=== PATIENT | female | born 1985 | race Two or more races ===

== ENCOUNTER 2016-08-02 17:11 | Observation (INO) | payer OTHER ==
--- NOTE | 2016-08-02 20:17 | ER Document Report ---
ED Medical Screen (RME) - General Chief Complaint: Abdominal Pain Stated Complaint: ABDOMINAL PAIN Time Seen by Provider: 08/02/16 20:14 Mode of Arrival: Ambulatory Information source: Patient Notes: Is a 30-year-old previously healthy female who presents for abdominal pain. She states that at about 9:00 this morning she had severe lower abdominal pain. She felt like she may have to have a bowel movement but she was unable to. The pain eventually subsided. However she had another episode at about 1600 today. Reports severe crampy lower abdominal pain. No dysuria. She has had nausea but no vomiting today. No vaginal bleeding or discharge. Of note she does have an IUD and she is concerned about possible ectopic . Last po : crackers in the waiting room here. I have greeted and performed a rapid initial assessment of this patient. A comprehensive ED assessment and evaluation of the patient, analysis of test results and completion of the medical decision making process will be conducted by additional ED providers. TRAVEL OUTSIDE OF THE [place] IN LAST 30 DAYS: No - Related Data Allergies/Adverse Reactions: No Known Drug Allergies Allergy (Verified 08/02/16 20:07) Past Medical History Renal/ Medical History: Denies: Hx Peritoneal Dialysis Physical Exam - Vital signs Vitals: Temp Pulse Resp BP Pulse Ox 98.4 F 81 20 109/60 100 08/02/16 18:34 08/02/16 18:34 08/02/16 18:34 08/02/16 18:34 08/02/16 18:34 - General General appearance: Appears well, Alert In distress: None - Respiratory Respiratory status: No respiratory distress Breath sounds: Normal. No: Rales, Rhonchi, Wheezing - Cardiovascular Rhythm: Regular Heart sounds: Normal auscultation, S1 appreciated, S2 appreciated Murmur: No Course - Vital Signs Vital signs: Temp Pulse Resp BP Pulse Ox 98.4 F 81 20 109/60 100 08/02/16 18:34 08/02/16 18:34 08/02/16 18:34 08/02/16 18:34 08/02/16 18:34
--- NOTE | 2016-08-02 20:24 | ER Document Report ---
ED GI/ - General Chief Complaint: Abdominal Pain Stated Complaint: ABDOMINAL PAIN Time Seen by Provider: 08/02/16 20:14 Mode of Arrival: Ambulatory Information source: Patient Notes: 30 yo non smoker female c/o low abdominal pain since 9 this morning has felt like she had a bowel movement and progressively got worse throughout the day. felt better with heat, at 1600 returned in same location, bm at that time did not help. No vaginal d/c or odor. No dysuria, frequency or urgency. Non hormone IUD in place for 2 years, dr. sunny seymour placed it . No abd. surgeries. , spontaneous miscarriege. Hot flash when the pain was worse. Similar pain 1 month ago, resolved on its own. No hx crohns, colitis, diverticulitis. Nausea without vomiting. TRAVEL OUTSIDE OF THE [place] IN LAST 30 DAYS: No - Related Data Allergies/Adverse Reactions: No Known Drug Allergies Allergy (Verified 08/02/16 20:07) Home Medications: Current Home Medications No Home Medications 08/03/16 [History] Past Medical History - General Information source: Patient - Social History Smoking Status: Current Every Day Smoker Frequency of alcohol use: None Drug Abuse: None Lives with: Family Family History: Reviewed & Not Pertinent - Medical History Medical History: Negative Renal/ Medical History: Denies: Hx Peritoneal Dialysis Surgical Hx: Negative Review of Systems - Review of Systems Constitutional: No symptoms reported EENT: No symptoms reported Cardiovascular: No symptoms reported Respiratory: No symptoms reported Gastrointestinal: See HPI Genitourinary: No symptoms reported Female Genitourinary: No symptoms reported Musculoskeletal: No symptoms reported Skin: No symptoms reported Hematologic/Lymphatic: No symptoms reported Neurological/Psychological: No symptoms reported Physical Exam - Vital signs Vitals: Temp Pulse Resp BP Pulse Ox 98.4 F 81 20 109/60 100 08/02/16 18:34 08/02/16 18:34 08/02/16 18:34 08/02/16 18:34 08/02/16 18:34 Interpretation: Normal - General General appearance: Alert In distress: None Notes: mild pale - HEENT Head: Normocephalic, Atraumatic Eyes: Normal Pupils: PERRL Pharynx: Normal Neck: Supple. No: Lymphadenopathy - Respiratory Respiratory status: No respiratory distress Chest status: Nontender Breath sounds: Normal Chest palpation: Normal - Cardiovascular Rhythm: Regular Heart sounds: Normal auscultation Murmur: No - Abdominal Inspection: Normal Distension: No distension Bowel sounds: Normal Tenderness: Tender, McBurney's point Organomegaly: No organomegaly - Genitourinary External exam: Normal Speculum exam: Normal Vaginal bleeding: None Bimanuel exam: No: Cervical motion tender, Adnexal tenderness - Back Back: Normal, Nontender. No: CVA tenderness - Extremities General upper extremity: Normal inspection, Nontender, Normal color, Normal ROM , Normal temperature General lower extremity: Normal inspection, Nontender, Normal color, Normal ROM , Normal temperature, Normal weight bearing. No: Marely's sign - Neurological Neuro grossly intact: Yes Cognition: Normal Orientation: AAOx4 Wilver Coma Scale Eye Opening: Spontaneous Wilver Coma Scale Verbal: Oriented Wilver Coma Scale Motor: Obeys Commands Wilver Coma Scale Total: 15 Speech: Normal Motor strength normal: LUE, RUE, LLE, RLE Sensory: Normal - Psychological Associated symptoms: Normal affect, Normal mood - Skin Skin Temperature: Warm Skin Moisture: Dry Skin Color: Normal Course - Re-evaluation Re-evalutation: 08/02/16 21:53 IUD string is normal length, mucoid, white discharge, no CMT, still operator gin over mcBurny's CT ordered. Pt is NPO 08/03/16 01:[address] mcarthur, get the US, give invanz 1 gm IV,, based on CT report, encapsulation of 2.6 cm fluid collection in the right pelvis. The appendix is normal. With the patient. 08/03/16 03:34 With the radiologist who believes that between the ultrasound and the CT that this is a [employer] MA[employer]GER problem not derived from the intestines. He is not sure if it is endometrioma or abscess. He also states that the IUD is lower in the endometrial cavity than it should be. 08/03/16 03:35 dr. seymour is in the emergency department and will see the patient 08/03/16 03:56 dr Seymour is here to see the patient. 08/03/16 04:12 dr. seymour is admitting to observation - Vital Signs Vital signs: Temp Pulse Resp BP Pulse Ox 98.3 F 85 16 100/57 L 98 08/03/16 11:13 08/03/16 11:13 08/03/16 11:13 08/03/16 11:13 08/03/16 11:13 - Laboratory Result Diagrams: 08/03/16 06:50 08/03/16 06:50 Laboratory results interpreted by me: 08/02/16 08/02/16 08/02/16 20:32 21:10 21:10 WBC 16.8 H Seg Neuts % (Manual) 89 H Lymphocytes % (Manual) 4 L Abs Neuts (Manual) 15.0 H Glucose 116 H Ur Leukocyte Esterase TRACE H Discharge - Discharge Clinical Impression: Pelvic mass Abdominal pain Qualifiers: Abdominal location: right lower quadrant Qualified Code(s): R10.31 - Right lower quadrant pain Condition: Stable Disposition: ADMITTED OBSERVATION Admitting Provider: [facility] Admitted: Post
[2016-08-02 20:45] LABS: APPEARANCE,URINE SLIGHTLY-CLOUDY; BILIRUBIN,URINE NEGATIVE (NEGATIVE); GLUCOSE, URINE NEGATIVE (NEGATIVE); KETONES,URINE NEGATIVE (NEGATIVE); LEUKOCYTE ESTERASE,URINE TRACE (NEGATIVE); NITRITE,URINE NEGATIVE (NEGATIVE); PROTEIN,URINE NEGATIVE (NEGATIVE); URINE SPECIFIC GRAVITY 1.025; UROBILINOGEN,URINE NEGATIVE mg/dL (<2.0)
[2016-08-02] MEDS ORDERED: NORMAL SALINE 1000 ML 1,000 ML IV ONE (20:50)
[2016-08-02 21:21] LABS: HEMATOCRIT 42.1 % (36.0-47.0); HGB HCT DIFFERENCE -0.1; MEAN CORPUSCULAR HEMOGLOBIN 29.9 pg (27.0-33.4); MEAN CORPUSCULAR HGB CONC 33.2 g/dL (32.0-36.0); MEAN CORPUSCULAR VOLUME 90 fl (80-97); RED BLOOD COUNT 4.67 10^6/uL (3.72-5.28); RED CELL DISTRIBUTION WIDTH 12.7 % (11.5-14.0); WHITE BLOOD COUNT 16.8 10^3/uL (4.0-10.5)
[2016-08-02 21:37] LABS: BASOPHILS % (MANUAL) 0 % (0-2); EOSINOPHILS % (MANUAL) 0 % (0-6); LYMPHOCYTES % (MANUAL) 4 % (13-45); TOTAL CELLS COUNTED 100
[2016-08-02 21:38] LABS: TOXIC GRANULATION SLIGHT
[2016-08-02 21:47] LABS: ALANINE AMINOTRANSFERASE 33 U/L (9-52); ALBUMIN 4.1 g/dL (3.5-5.0); ALKALINE PHOSPHATASE 77 U/L (38-126); ANION GAP 11 (5-19); ASPARTATE AMINO TRANSFERASE 26 U/L (14-36); BILIRUBIN,DIRECT 0.2 mg/dL (0.0-0.4); BILIRUBIN,TOTAL 1.2 mg/dL (0.2-1.3); BLOOD UREA NITROGEN 13 mg/dL (7-20); CARBON DIOXIDE 27 mmol/L (22-30); CHLORIDE 103 mmol/L (98-107); CREATININE RESULT 0.82 mg/dL (0.52-1.25); GLUCOSE 116 mg/dL (75-110); LIPASE 29.3 U/L (23-300); POTASSIUM 3.9 mmol/L (3.6-5.0); SODIUM 140.9 mmol/L (137-145); TOTAL PROTEIN 7.3 g/dL (6.3-8.2)
[2016-08-02 23:27] LABS: CHLAM PCR NOT DETECTED (NOT DETECT)
--- NOTE | 2016-08-03 01:08 | RADIOLOGY REPORT (SQ) ---
EXAM DESCRIPTION: CT ABD/PELVIS WITH IV ORAL COMPLETED DATE/TIME: 08/03/2016 12:41 am REASON FOR STUDY: rlq abd pain COMPARISON: None. TECHNIQUE: CT scan of the abdomen and pelvis performed using helical scanning technique with dynamic intravenous contrast injection. No oral contrast. Images reviewed with lung, soft tissue, and bone windows. Reconstructed coronal and sagittal MPR images reviewed. Delayed images for evaluation of the urinary system also acquired. All images stored on PACS. All CT scanners at this facility use dose modulation, iterative reconstruction, and/or weight based d osing when appropriate to reduce radiation dose to as low as reasonably achievable (ALARA). [facility]: Dose Right [facility]: CareDose [facility]: Dose Right [facility]: Teradose 4D [facility]: Tudou CONTRAST TYPE AND DOSE: 77mL Isovue 370- low osmolar. RENAL FUNCTION: None required. The patient is less than 50 years old. RADIATION DOSE: 15.82mGy. LIMITATIONS: None. FINDINGS: LOWER CHEST: No significant findings. No nodules or infiltrates. LIVER: Normal size. No masses or dilated ducts. SPLEEN: Normal size. No focal lesions. PANCREAS: No masses. No significant calcifications. No adjacent inflammation or peripancreatic fluid collections. Pancreatic duct not dilated. GALLBLADDER: No identified stones by CT criteria. No inflammatory changes to suggest cholecystitis. ADRENAL GLANDS: No significant masses or asymmetry. RIGHT KIDNEY AND URETER: No solid masses. No significant calcifications. No hydronephrosis or hyd roureter. LEFT KIDNEY AND URETER: No solid masses. No significant calcifications. No hydronephrosis or hydr oureter. AORTA AND VESSELS: No aneurysm. No dissection. Renal arteries, SMA, celiac without stenosis. RETROPERITONEUM: No retroperitoneal adenopathy, hemorrhage or masses. BOWEL AND PERITONEAL CAVITY: No masses or inflammatory changes. No free fluid or peritoneal masses. APPENDIX: Normal. PELVIS: Small fluid measuring 2.6-cm with possible partial encapsulation in the posterior right parac entral pelvis, image 75 of series 3. 4.4 cm left ovary with 2.7 cm cystic component, within normal l imits. Likely 2.3 cm right ovary. Normal bladder. IUD. ABDOMINAL WALL: No masses. No hernias. BONES: No significant or acute findings. OTHER: No other significant finding. IMPRESSION: Small pelvic fluid has possible partial encapsulation; cannot exclude a developing absce ss. Consider obtaining ultrasound correlation and/or CT/US surveillance, as clinically warranted. TECHNICAL DOCUMENTATION: JOB ID: [id number] Quality ID # [id number]: Final reports with documentation of one or more dose reduction techniques (e.g., Au tomated exposure control, adjustment of the mA and/or kV according to patient size, use of iterative reconstruction technique) 2010 [employer]- All Rights Reserved
[2016-08-03] MEDS ORDERED: CEFTRIAXONE 1 GM/D5W RTU 50 ML IV ONE (01:15)
[2016-08-03] MEDS ORDERED: NORMAL SALINE 1000 ML 1,000 ML IV ONE (01:16)
[2016-08-03] MEDS ORDERED: ERTAPENEM SODIUM INJ 1 GM VIAL IV ONE (01:17)
[2016-08-03] MEDS ORDERED: MORPHINE SULFATE 10 MG/ML INJ IV ONE (01:27)
--- NOTE | 2016-08-03 03:16 | RADIOLOGY REPORT (SQ) ---
EXAM DESCRIPTION: U/S NON OB PEL TV W/DOPPLER COMPLETED DATE/TIME: 08/03/2016 2:49 am REASON FOR STUDY: rlq pain, eval for TOA COMPARISON: None. TECHNIQUE: Dynamic and static grayscale images acquired of the pelvis via transvaginal approach and recorded on PACS. Additional selected color Doppler and spectral images recorded. LIMITATIONS: None. FINDINGS: UTERUS: Contour normal. No mass. IUD is at the level of the lower uterine segment, 25 mm from fundal endometrium. ENDOMETRIAL STRIPE: No focal or generalized thickening. No masses. CERVIX: No nabothian cysts. Small fluid in cervix. RIGHT OVARY: No abnormal masses. RIGHT OVARY DOPPLER: Normal arterial vascular flow without evidence for torsion. LEFT OVARY: 2.5 cm cystic component. LEFT OVARY DOPPLER: Normal arterial vascular flow without evidence for torsion. FREE FLUID: None noted. OTHER: Complex hypoechoic avascular 3.4 x 2.3 x 3.0 cm collection with a septation in the posterior r ight ovarian fossa appears discontinuous with the right ovary. MEASUREMENTS: UTERUS: 8.2 cm. ENDOMETRIAL STRIPE: 0.9 cm. Low uterine segment IUD, 2.5 cm from fundal endometrium. RIGHT OVARY: 3.1 cm. LEFT OVARY: 4.3 cm. IMPRESSION: 1. A complex avascular collection in the posterior right ovarian fossa measures 3.4-cm ; differential diagnosis includes endometrioma or complex free fluid. No evidence of abscess. Canno t exclude other infectious or neoplastic processes. Sonographic surveillance recommended in 6 weeks. 2. IUD is displaced to the inferior aspect of the endometrial cavity. TECHNICAL DOCUMENTATION: JOB ID: [id number] [employer]- All Rights Reserved
[2016-08-03] MEDS ORDERED: RINGERS SOLUTION,LACTATED 1,000 ML IV PRN (06:02)
[2016-08-03] MEDS ORDERED: HYDROMORPHONE HCL INJ/PF 2 MG/ML AMPULE IV PRN (06:02)
[2016-08-03 07:03] LABS: ABSOLUTE LYMPHOCYTES (AUTO) 2.2 10^3/uL (0.5-4.7); ABSOLUTE MONOCYTES (AUTO) 1.3 10^3/uL (0.1-1.4); ABSOLUTE NEUT (AUTO) 11.3 10^3/uL (1.7-8.2); BASOPHILS % (AUTO) 0.3 % (0-2); EOSINOPHILS % (AUTO) 0.2 % (0-6); HEMATOCRIT 38.2 % (36.0-47.0); HEMOGLOBIN 12.8 g/dL (12.0-15.5); HGB HCT DIFFERENCE 0.2; LYMPHOCYTES % (AUTO) 14.5 % (13-45); MEAN CORPUSCULAR HEMOGLOBIN 30.1 pg (27.0-33.4); MEAN CORPUSCULAR HGB CONC 33.5 g/dL (32.0-36.0); MEAN CORPUSCULAR VOLUME 90 fl (80-97); MONOCYTES % (AUTO) 8.7 % (3-13); RED BLOOD COUNT 4.26 10^6/uL (3.72-5.28); RED CELL DISTRIBUTION WIDTH 12.6 % (11.5-14.0); SEGMENTED NEUTROPHILS % (AUTO) 76.3 % (42-78); WHITE BLOOD COUNT 14.9 10^3/uL (4.0-10.5)
[2016-08-03 07:21] LABS: ANION GAP 8 (5-19); BLOOD UREA NITROGEN 7 mg/dL (7-20); CALCIUM 8.1 mg/dL (8.4-10.2); CARBON DIOXIDE 24 mmol/L (22-30); CHLORIDE 107 mmol/L (98-107); GLUCOSE 99 mg/dL (75-110); POTASSIUM 3.7 mmol/L (3.6-5.0); SODIUM 138.6 mmol/L (137-145)
--- NOTE | 2016-08-03 09:53 | PDOC PROGRESS REPORT ---
Subjective Subjective:: Pt reports that her pain has resolved. No new complaints Physical Exam - Physical Exam Vital Signs: Temp Pulse Resp BP Pulse Ox 98.2 F 82 12 92/55 L 100 08/03/16 09:00 08/03/16 09:00 08/03/16 09:00 08/03/16 09:00 08/03/16 09:00 General appearance: PRESENT: no acute distress, cooperative, well-developed Result Laboratory Results: 08/03/16 06:50 08/03/16 06:50 08/03/16 08/03/16 06:50 06:50 WBC 14.9 H RBC 4.26 Hgb 12.8 Hct 38.2 MCV 90 MCH 30.1 MCHC 33.5 RDW 12.6 Plt Count 197 Seg Neutrophils % 76.3 Lymphocytes % 14.5 Monocytes % 8.7 Eosinophils % 0.2 Basophils % 0.3 Absolute Neutrophils 11.3 H Absolute Lymphocytes 2.2 Absolute Monocytes 1.3 Absolute Eosinophils 0.0 Absolute Basophils 0.0 Sodium 138.6 Potassium 3.7 Chloride 107 Carbon Dioxide 24 Anion Gap 8 BUN 7 Creatinine 0.70 Est GFR ( Amer) > 60 Est GFR (Non-Af Amer) > 60 Glucose 99 Calcium 8.1 L Impressions: Abdomen/Pelvis CT 08/02/16 21:52 IMPRESSION: Small pelvic fluid has possible partial encapsulation; cannot exclude a developing abscess. Consider obtaining ultrasound correlation and/or CT/US surveillance, as clinically warranted. Transvaginal US 08/03/16 01:18 IMPRESSION: 1. A complex avascular collection in the posterior right ovarian fossa measures 3.4-cm ; differential diagnosis includes endometrioma or complex free fluid. No evidence of abscess. Cannot exclude other infectious or neoplastic processes. Sonographic surveillance recommended in 6 weeks. 2. IUD is displaced to the inferior aspect of the endometrial cavity. Assessment & Plan - Diagnosis (1) Ovarian cyst Is this a current diagnosis for this admission?: Yes - Time Time Spent with patient: Less than 15 minutes Critical Time spent with patient: Less than 15 minutes Anticipated discharge: Home Within: within 24 hours - Will d/c pt home. Will have pt f/u with Dr Robledo in 1 week Torsion precautions given
[2016-08-03] MEDS ORDERED: CEFTRIAXONE 1 GM/D5W RTU 1 GM/50 ML RTUPB IV SCH (10:00)
[2016-08-03 12:39] VITALS: BP 100/57
--- NOTE | 2016-09-20 11:01 | DISCHARGE SUMMARY E ---
Discharge Summary NAME: CLAIRE SIDDIQUI : 1985 AGE: 30Y ADMITTED: 08/03/2016 DISCHARGED: 08/03/2016 REASON FOR ADMISSION: A 30-year-old with abdominal pain and ovarian cyst. HISTORY AND PHYSICAL: See Dr. Robledo's history and physical from 08/02/2016 for full details. HOSPITAL COURSE: Patient is admitted to the hospital for pain control for the pain of her ovarian cyst. She is also started on IV antibiotics. By hospital day number 2, patient reports the pain has greatly resolved and she has had no nausea, no vomiting, or fevers while in the hospital. Her CBC initially had elevated white count, but on hospital day number one, her white count has resolved and become normal. Her hemoglobin has been stable. On hospital day number 2, patient is meeting goals and is requesting to go home and therefore was discharged home. DISCHARGE INSTRUCTIONS: Discharge patient home. Diet is regular. Level of activity is as tolerated. Followup interval is [address] Robledo. SPECIAL INSTRUCTIONS: Patient instructed to call MD if temperature greater than 100.5 or severe abdominal pain reoccurs. MEDICATIONS ON DISCHARGE: None. DICTATING PHYSICIAN: Manjinder Hayes DO [id number] PHY#: [id number] ID: [id number] JOB#: [id number] ACCT: [id number] cc:ALYSSIA ROBLEDO M.D. Manjinder Hayes D.O. >
== END 2016-08-03 12:53 | disposition home or self-care (01) ==
LOC: ER 17:11 → EH 08-03 04:00 → UNDOADMOB 08-03 04:13 → EH 08-03 04:13 → 2N 08-03 05:49 → EH 08-03 05:49
PROVIDERS: ADMIT Obstetrics & Gynecology; ATTEND Obstetrics & Gynecology
DX: N94.89 Other specified conditions associated with female genital organs and menstrual cycle (principal); N83.201 Unspecified ovarian cyst, right side; T83.32XA Displacement of intrauterine contraceptive device, initial encounter; R11.0 Nausea; R23.2 Flushing
CPT/HCPCS: 99285; 96374; 36415 ×2; 87040; 87086; 87210; 83690; 84703; 85025 ×2; 80048; 80053; 81001; 87491; 87591; 76830; 93976; 74177; G0378 ×2; J2270; J1170; J7120; J0696

== ENCOUNTER 2016-11-03 07:37 | Day surgery (SDC) | payer OTHER ==
[2016-10-28 10:34] LABS: HEMATOCRIT 40.9 % (36.0-47.0); HEMOGLOBIN 14.1 g/dL (12.0-15.5); HGB HCT DIFFERENCE 1.4; MEAN CORPUSCULAR HEMOGLOBIN 31.3 pg (27.0-33.4); MEAN CORPUSCULAR HGB CONC 34.3 g/dL (32.0-36.0); MEAN CORPUSCULAR VOLUME 91 fl (80-97); RED BLOOD COUNT 4.49 10^6/uL (3.72-5.28); WHITE BLOOD COUNT 8.5 10^3/uL (4.0-10.5)
[2016-10-28 10:38] LABS: APPEARANCE,URINE CLOUDY; BILIRUBIN,URINE NEGATIVE (NEGATIVE); GLUCOSE, URINE NEGATIVE (NEGATIVE); KETONES,URINE NEGATIVE (NEGATIVE); LEUKOCYTE ESTERASE,URINE LARGE (NEGATIVE); NITRITE,URINE NEGATIVE (NEGATIVE); PROTEIN,URINE NEGATIVE (NEGATIVE); UROBILINOGEN,URINE NEGATIVE mg/dL (<2.0)
[~2016-11-03 07:37] MED LIST: ACETAMINOPHEN 100 ML IV ONE; DEXAMETHASONE SOD PHOSPHATE INJ 4 MG/1 ML VIAL ONE; FENTANYL CITRATE INJ/PF 100 MCG/2 ML AMPUL ONE; HYDROMORPHONE HCL INJ/PF 2 MG/ML AMPULE ONE; LIDOCAINE 0.5% INJ-PF (5 MG/ML) 50 ML SDV INJ PRN; MIDAZOLAM 2 MG/2 ML INJ ONE; ONDANSETRON HCL INJ/PF 4 MG/2 ML SDV ONE; PROPOFOL INJ 200 MG/20 ML VIAL IV ONE; RINGERS SOLUTION,LACTATED 1,000 ML IV PRN
[2016-11-03] MEDS ORDERED: FAMOTIDINE INJ/PF 20 MG/2 ML SDV IV ONE (08:13)
[2016-11-03] MEDS ORDERED: SCOPOLAMINE HYDROBROMIDE 1.5 MG PATCH.TD72 ONE (08:14)
[2016-11-03] MEDS ORDERED: FENTANYL CITRATE INJ/PF 100 MCG/2 ML AMPUL IV PRN ×3 (09:12)
[2016-11-03] MEDS ORDERED: PROMETHAZINE HCL INJ 25 MG/1 ML VIAL IV PRN (09:12)
[2016-11-03] MEDS ORDERED: DIPHENHYDRAMINE HCL 50 MG/ML VIAL IV PRN (09:12)
[2016-11-03] MEDS ORDERED: MEPERIDINE HCL/PF INJ 25 MG/1 ML DISP.SYRIN IV PRN (09:12)
--- NOTE | 2016-11-03 10:11 | Operative Report ---
Operative Report DATE OF SURGERY: 11/03/16 PREOPERATIVE DIAGNOSIS: Left-sided chocolate cyst and desires tubal ligation POSTOPERATIVE DIAGNOSIS: Same OPERATION: Laparoscopy with lysis of adhesions and bilateral tubal fulguration followed by left salpingo-oophorectomy SURGEON: ALYSSIA SARAVIA ANESTHESIA: GA TISSUE REMOVED OR ALTERED: Left tube and ovary COMPLICATIONS: None ESTIMATED BLOOD LOSS: 20 cc INTRAOPERATIVE FINDINGS: Left-sided chocolate cyst of the left ovary PROCEDURE: The patient was taken back to the OR and placed in supine position. General anesthesia was induced. She was placed in the dorsolithotomy position using Kole stirrups. Her abdomen perineum and vagina were prepared and draped in sterile fashion. Her bladder was drained with a red rubber catheter. A sponge stick was placed in the vagina for manipulation of the uterus. Incision was made at the umbilicus and the natural umbilical defect was dilated allowing a 5 mm port to be placed bluntly. Laparoscopy confirmed appropriate placement and the abdomen was insufflated with CO2 gas. A suprapubic incision was made and a 5 mm port placed under laparoscopic visualization. A left lateral port was also placed lateral to the inferior epigastric vessels. View of the pelvis was good the patient's right ovary was a bit stuck to the cul-de-sac but easily freed up with blunt dissection. The left ovary was adherent to the descending colon in the vaginal sidewall. While manipulating the ovary that ruptured draining dark chocolate colored fluid. This freed up the ovary quite a bit and I was able to bluntly peel it off the descending colon and pelvic sidewall using 2 graspers. The dark-colored fluid was suctioned out of the pelvis. The ovary appeared to have quite a bit of endometriosis associated with it and because the patient was done with childbearing I felt it was best to remove the ovary so it would cause her further pain. The ovary was retracted medially away from the ureter. The infundibulopelvic pedicle was grasped cut and ligated with the LigaSure device. The utero-ovarian pedicle likewise was grasped cut and ligated with the LigaSure device freeing the ovary. A 10 mm port was placed through the suprapubic incision. An Endo bag was placed through this port and the ovary was placed in the bag and removed through the suprapubic incision. It was sent for pathology. The remainder of the pelvis was irrigated and suctioned free of fluid the pedicles were hemostatic. During the course of the procedure of the left fallopian tube was cauterized with Kleppinger to complete the tubal ligation. At the end of the case the ports were removed under laparoscopic visualization the gas was allowed to escape from the abdomen. The fascia at the umbilicus was closed with a 2-0 Vicryl suture. The skin at all 3 sites were closed with 4-0 undyed Vicryl suture. Dressing was applied all instruments removed from the vagina. She was extubated in the OR and taken to recovery room in stable condition.
[2016-11-03] MEDS ORDERED: IBUPROFEN 800 MG TABLET PO PRN (10:18)
[2016-11-03] MEDS ORDERED: KETOROLAC TROMETHAMINE INJ/PF 30 MG/1 ML SDV IV PRN (10:18)
[2016-11-03] MEDS ORDERED: OXYCODONE-ACETAMINOPHEN 5-325 MG TABLET PO PRN ×2 (10:18→10:19)
[2016-11-03 12:06] VITALS: BP 119/74
[2016-11-03] MEDS ORDERED: ROCURONIUM BROMIDE INJ 50 MG/5 ML VIAL IV ONE (15:25)
[2016-11-03] MEDS ORDERED: SUCCINYLCHOLINE CHLORIDE INJ 200 MG/10 ML VIAL ONE (15:25)
== END 2016-11-03 12:10 | disposition home or self-care (01) ==
LOC: OROUT 07:37
PROVIDERS: ATTEND Obstetrics & Gynecology
PROC: 0UT64ZZ Resection of Left Fallopian Tube, Percutaneous Endoscopic Approach (ICD-10-PCS; 2016-11-03)
PROC: 0U554ZZ Destruction of Right Fallopian Tube, Percutaneous Endoscopic Approach (ICD-10-PCS; 2016-11-03)
PROC: 0UT14ZZ Resection of Left Ovary, Percutaneous Endoscopic Approach (ICD-10-PCS; principal; 2016-11-03 08:30)
DX: N80.1 Endometriosis of ovary (principal); N83.02 Follicular cyst of left ovary; N83.12 Corpus luteum cyst of left ovary
CPT/HCPCS: 36415; 85027; 81005; 81025; 88305 ×2; 58661; 58671; J2250; J3490; J1100; J3010; J1170; J0330; J2405; J2704; S0028; J0131; 840